=== PATIENT | female | born 2000 ===

== ENCOUNTER 2020-05-04 16:42 | Emergency (ER) | payer OTHER ==
[2020-05-04 17:05] VITALS: BMI 34.3
[2020-05-04] MEDS ORDERED: KETOROLAC TROMETHAMINE 30 MG/1 ML VIAL IVPUSH ONE (18:46)
[2020-05-04] MEDS ORDERED: SODIUM CHLORIDE 0.9% 500 ML INFUS.BAG IV ONE ×2 (19:37→21:22)
[2020-05-04] MEDS ORDERED: KETOROLAC TROMETHAMINE 30 MG/1 ML VIAL ONE (19:55)
[2020-05-04 20:25] LABS: BASO % 0.7 % (0-2.0); EOS % 2.4 % (0-4.5); HEMATOCRIT 43.7 % (32.4-45.2); HEMOGLOBIN 14.4 GM/dL (10.7-15.3); LYMPH % 24.3 % (8-40); MCH 29.6 pg (25.7-33.7); MEAN CELL VOLUME 89.9 fl (80-96); MEAN PLT VOLUME 7.7 fl (7.5-11.1); MONO % 5.8 % (3.8-10.2); NEUT % 66.8 % (42.8-82.8); PLATELET COUNT 475 K/MM3 (134-434); RBC 4.86 M/mm3 (3.60-5.2); RDW 16.3 % (11.6-15.6); WHITE BLOOD COUNT 12.2 K/mm3 (4.0-10.0)
[2020-05-04 20:30] LABS: EPI CELLS >36 /uL (0-25.1); HYALINE CASTS 15 /uL (0-3.1); URINE APPEARANCE TURBID; URINE BACTERIA 1704 /uL (0-1359); URINE BILIRUBIN 1+ (NEGATIVE); URINE COLOR RED; URINE GLUCOSE (UA) NEGATIVE (NEGATIVE); URINE KETONE 1+ (NEGATIVE); URINE LEUK ESTERASE 2+ (NEGATIVE); URINE NITRITE NEGATIVE (NEGATIVE); URINE PROTEIN 2+ (NEGATIVE); URINE RBC 8722 /uL (0-23.9); URINE WBC 93 /uL (0-25.8)
[2020-05-04] MEDS ORDERED: LACTATED RINGERS SOLUTION 1000 ML INFUS.BAG IV ONE (21:22)
[2020-05-04 21:59] LABS: CHLORIDE 102 mmol/L (98-107); SODIUM 128 mmol/L (136-145)
[2020-05-04 22:01] LABS: CALCIUM 9.6 mg/dL (8.5-10.1); CO2 25 mmol/L (21-32); GLUCOSE,RANDOM 61 mg/dL (74-106)
[2020-05-04 22:02] LABS: ALBUMIN 4.1 g/dl (3.4-5.0)
[2020-05-04 22:04] LABS: SGOT/AST 110 U/L (15-37)
[2020-05-04 22:06] LABS: BILIRUBIN,TOTAL 0.6 mg/dL (0.2-1); TOT PROT 9.6 g/dl (6.4-8.2)
[2020-05-04 22:07] LABS: ALK PHOS 48 U/L (45-117)
[2020-05-05 01:40] VITALS: BP 125/74; PULSE 90
== END 2020-05-05 01:40 | disposition home or self-care (01) ==
LOC: JER 16:42
PROC: 3E0333Z Introduction of Anti-inflammatory into Peripheral Vein, Percutaneous Approach (ICD-10-PCS; principal; 2020-05-04)
DX: N93.9 Abnormal uterine and vaginal bleeding, unspecified (principal); R10.9 Unspecified abdominal pain
CPT/HCPCS: 36415; 76856-TC; 80053; 81003; 84702; 85025; 99285-25